=== PATIENT | female | born 1980 | race Caucasian/White ===

== ENCOUNTER 2016-09-30 21:15 | Emergency (ER) | payer MEDICAID ==
[2016-09-30 22:54] LABS: ABSOLUTE EOSINOPHILS # (AUTO) 0.1 10^3/uL (0.0-0.6); ABSOLUTE LYMPHOCYTES (AUTO) 2.3 10^3/uL (0.5-4.7); ABSOLUTE MONOCYTES (AUTO) 0.8 10^3/uL (0.1-1.4); BASOPHILS % (AUTO) 0.4 % (0-2); EOSINOPHILS % (AUTO) 0.8 % (0-6); HEMATOCRIT 41.2 % (36.0-47.0); HEMOGLOBIN 14.3 g/dL (12.0-15.5); HGB HCT DIFFERENCE 1.7; LYMPHOCYTES % (AUTO) 22.5 % (13-45); MEAN CORPUSCULAR HEMOGLOBIN 30.6 pg (27.0-33.4); MEAN CORPUSCULAR HGB CONC 34.7 g/dL (32.0-36.0); MEAN CORPUSCULAR VOLUME 88 fl (80-97); RED BLOOD COUNT 4.66 10^6/uL (3.72-5.28); RED CELL DISTRIBUTION WIDTH 12.5 % (11.5-14.0); SEGMENTED NEUTROPHILS % (AUTO) 68.3 % (42-78); WHITE BLOOD COUNT 10.3 10^3/uL (4.0-10.5)
[2016-09-30 23:00] LABS: APPEARANCE,URINE CLEAR; BILIRUBIN,URINE NEGATIVE (NEGATIVE); GLUCOSE, URINE NEGATIVE (NEGATIVE); KETONES,URINE NEGATIVE (NEGATIVE); LEUKOCYTE ESTERASE,URINE NEGATIVE (NEGATIVE); NITRITE,URINE NEGATIVE (NEGATIVE); PROTEIN,URINE NEGATIVE (NEGATIVE); URINE SPECIFIC GRAVITY 1.002; UROBILINOGEN,URINE NEGATIVE mg/dL (<2.0)
--- NOTE | 2016-09-30 23:37 | ER Document Report ---
ED General - General Chief Complaint: Vaginal Bleeding Stated Complaint: VAGINAL BLEEDING Time Seen by Provider: 09/30/16 23:28 Notes: Patient is a 35-year-old female presents for complaint of some vaginal spotting in . Patient says that tonight she passed what appeared to be either clot or some tissue in the toilet. She said some white-pink bleeding since then. No severe pain. No fevers. She has some dry heaving and diarrhea yesterday but that has since resolved. No other complaints this time. This is her third . Her first was normal. Her second ended in miscarriage. No complication with this thus far until tonight. She is followed by the health department. Next appointment is Sunday. She is taking vitamins. - Related Data Allergies/Adverse Reactions: No Known Allergies Allergy (Verified 09/30/16 22:10) Past Medical History - Social History Smoking Status: Unknown if Ever Smoked Frequency of alcohol use: None Drug Abuse: None Family History: Reviewed & Not Pertinent Renal/ Medical History: Denies: Hx Peritoneal Dialysis Past Surgical History: Reports: Hx Gynecologic Surgery - ovarian cyst - Immunizations Hx Diphtheria, Pertussis, Tetanus Vaccination: Yes Review of Systems - Review of Systems Notes: My Normal Review Basic REVIEW OF SYSTEMS: CONSTITUTIONAL : Denies fever, chills, or sweats. Denies recent illness. EENT: Denies eye, ear, throat, or mouth pain or symptoms. Denies nasal or sinus congestion. RESPIRATORY: Denies cough, cold, or chest congestion. Denies shortness of breath, difficulty breathing, or wheezing. GASTROINTESTINAL: No abdominal pain. Denies nausea, vomiting, or diarrhea. Denies constipation. GENITOURINARY: Denies difficulty urinating, painful urination, burning, frequency, or blood in urine. FEMALE GENITOURINARY: Some vaginal spotting. LMP: Currently . MUSCULOSKELETAL: Denies neck or back pain or joint pain or swelling. SKIN: Denies rash or skin lesions. NEUROLOGICAL: Denies altered mental status or loss of consciousness. Denies headache. Denies weakness or paralysis or loss of use of either side. Denies problems with gait or speech. Denies sensory or motor loss. ALL OTHER SYSTEMS REVIEWED AND NEGATIVE. Physical Exam - Vital signs Vitals: Temp Pulse Resp BP Pulse Ox 98.8 F 67 16 122/67 97 09/30/16 22:10 09/30/16 22:10 09/30/16 22:10 09/30/16 22:10 09/30/16 22:10 - Notes Notes: General Appearance: Well nourished, alert, cooperative, no acute distress, no obvious discomfort. Vitals: reviewed, See vital signs table. Head: no swelling or tenderness to the head Eyes: PERRL, EOMI, Conjuctiva clear Mouth: No decreasd moisture Lungs: No wheezing, No rales, No rhonci, No accessory muscle use, good air exchange bilaterally. Heart: Normal rate, Regular rythm, No murmur, no rub Abdomen: Normal BS, soft, No rigidity, No abdominal tenderness, No guarding, no rebound, no abdominal masses, no organomegaly Pelvic: Normal external genitalia. Patient has some small amount of brown material in vaginal vault that is consistent with old blood from her earlier bleeding. There is no active bleeding. Cervical os is closed. No pain on exam. Extremities: strength 5/5 in all extremities, good pulses in all extremities, no swelling or tenderness in the extremities, no edema. Skin: warm, dry, appropriate color, no rash Neuro: speech clear, oriented x 3, normal affect, responds appropriately to questions. Course - Vital Signs Vital signs: Temp Pulse Resp BP Pulse Ox 97.8 F 64 16 117/65 97 10/01/16 01:14 10/01/16 01:14 10/01/16 01:14 10/01/16 01:14 10/01/16 01:14 - Laboratory Result Diagrams: 09/30/16 22:30 Laboratory results interpreted by me: 09/30/16 09/30/16 22:30 23:00 Beta HCG, Quant 87003.00 H Urine Blood MODERATE H - Transfer of Care Notes: 10/01/16 05:56 Patient's says no. She has no active bleeding on pelvic exam. She looks well. I feel she is safe to be discharged home. I encouraged return to ER if she has recurrent bleeding, pain, or feels unwell. Patient agrees with plan and will be discharged home. Dictation of this chart was performed using voice recognition software; therefore, there may be some unintended grammatical errors. Discharge - Discharge Clinical Impression: Vaginal bleeding in Qualifiers: Trimester: second trimester Qualified Code(s): O46.92 - Antepartum hemorrhage, unspecified, second trimester Condition: Good Disposition: HOME, SELF-CARE Additional Instructions: Please return to the ER if you have recurrent bleeding, fevers, pain, or feel unwell. Please avoid sexual activity and heavy lifting for at least 1 week. Please follow up with your OB doctor on Sunday. Forms: Return to Work Referrals: POLINA AMARO MD [Primary Care Provider] - 10/02/16
[2016-10-01 01:14] VITALS: BP 117/65
== END 2016-10-01 01:15 | disposition home or self-care (01) ==
LOC: ER 21:15
DX: O46.92 Antepartum hemorrhage, unspecified, second trimester (principal)
CPT/HCPCS: 36415; 76805; 81001; 84702; 85025; 86900; 86901; 93976; 99284

== ENCOUNTER 2017-02-13 10:45 | Outpatient (CLI) | payer MEDICAID ==
--- NOTE | 2017-02-13 12:19 | Non Stress Test Report ---
Non Stress Test Datetime Report Generated by CPN: 02/13/2017 12:18 DEMOGRAPHIC EGA NST: 34.3 INDICATION Indication for Study: Ordered by Provider VITAL SIGNS Temperature - NST: 98.1 Pulse - NST: 85 RESP - NST: 16 NBPSYS NST: 119 NBPDIA NST: 72 MONITORING Monitor Explained: Monitor Explained; Test Explained; Patient Verbalized Understanding Time on Monitor: 02/13/2017 10:59 Time off Monitor: 02/13/2017 12:07 NST Duration: 68 NST INTERVENTIONS NST Interventions: PO Hydration; Other NST Interventions Other: juice Physician Notified NST: Dr. Sanford BABY A: [id number] BABY A Movement : Present Contraction Frequency : 0 FHR Baseline : 135 Accelerations : 15X15 Decelerations : None Variability : Moderate 6-25bpm NST Review: Meets Criteria for Reactive NST NST Review and Verified By : Ulisses Chavis RNC NST Results: Reactive NST REPORT Report Trigger: Send Report
== END 2017-02-13 12:12 | disposition home or self-care (01) ==
LOC: LC 10:45
PROVIDERS: ATTEND Obstetrics & Gynecology
PROC: 4A1HXCZ Monitoring of Products of Conception, Cardiac Rate, External Approach (ICD-10-PCS; principal; 2017-02-13)
DX: Z34.93 Encounter for supervision of normal pregnancy, unspecified, third trimester (principal)
CPT/HCPCS: 59025

== ENCOUNTER 2017-03-27 13:16 | Inpatient (IN) | payer MEDICAID ==
[2017-03-27] MEDS ORDERED: RINGERS SOLUTION,LACTATED 300 ML IV ONE (13:29)
[2017-03-27] MEDS ORDERED: RINGERS SOLUTION,LACTATED 1,000 ML IV PRN (13:29)
[2017-03-27 13:41] LABS: APPEARANCE,URINE CLOUDY; BILIRUBIN,URINE NEGATIVE (NEGATIVE); GLUCOSE, URINE NEGATIVE (NEGATIVE); KETONES,URINE NEGATIVE (NEGATIVE); LEUKOCYTE ESTERASE,URINE LARGE (NEGATIVE); NITRITE,URINE NEGATIVE (NEGATIVE); PROTEIN,URINE NEGATIVE (NEGATIVE); URINE SPECIFIC GRAVITY 1.014; UROBILINOGEN,URINE NEGATIVE mg/dL (<2.0)
[2017-03-27 13:57] LABS: URINE BARBITURATES SCREEN NEGATIVE; URINE METHADONE SCREEN NEGATIVE; URINE OPIATES LOW NEGATIVE; URINE PHENCYCLIDINE SCREEN NEGATIVE
[2017-03-27 14:25] LABS: ABSOLUTE LYMPHOCYTES (AUTO) 1.6 10^3/uL (0.5-4.7); ABSOLUTE MONOCYTES (AUTO) 0.8 10^3/uL (0.1-1.4); ABSOLUTE NEUT (AUTO) 5.6 10^3/uL (1.7-8.2); BASOPHILS % (AUTO) 0.4 % (0-2); EOSINOPHILS % (AUTO) 0.5 % (0-6); HEMATOCRIT 39.4 % (36.0-47.0); HEMOGLOBIN 13.7 g/dL (12.0-15.5); HGB HCT DIFFERENCE 1.7; LYMPHOCYTES % (AUTO) 19.4 % (13-45); MEAN CORPUSCULAR HEMOGLOBIN 30.4 pg (27.0-33.4); MEAN CORPUSCULAR HGB CONC 34.8 g/dL (32.0-36.0); MEAN CORPUSCULAR VOLUME 87 fl (80-97); MONOCYTES % (AUTO) 10.2 % (3-13); RED BLOOD COUNT 4.52 10^6/uL (3.72-5.28); SEGMENTED NEUTROPHILS % (AUTO) 69.5 % (42-78); WHITE BLOOD COUNT 8.1 10^3/uL (4.0-10.5)
[2017-03-27] MEDS ORDERED: OXYTOCIN/NORMAL SALINE 0 UNIT/0 ML RTUINJ ONE (14:49)
[2017-03-27] MEDS ORDERED: OXYTOCIN/NORMAL SALINE 20 UNIT/1,000 ML RTUINJ IV PRN ×2 (15:01→21:57)
[2017-03-27] MEDS ORDERED: FENTANYL CITRATE INJ/PF 100 MCG/2 ML AMPUL ONE (19:38)
[2017-03-27] MEDS ORDERED: PHENYLEPHRINE HCL INJ/PF 10 MG/1 ML SDV ONE (19:38)
[2017-03-27] MEDS ORDERED: EPHEDRINE SULFATE INJ 50 MG/1 ML AMPULE ONE (19:38)
[2017-03-27] MEDS ORDERED: FENTANYL/BUPIVACAINE/NS/PF 200 MCG/100 ML RTUINJ EPI ONE (19:39)
[2017-03-27] MEDS ORDERED: BUPIVACAINE HCL 0.25 % INJ/PF (2.5 MG/1 ML) 30 ML VIAL ONE (19:39)
--- NOTE | 2017-03-27 19:43 | L&D Progress Notes ---
PROGRESS NOTES Datetime Report Generated by CPN: 03/27/2017 19:43 PROGRESS NOTE Impression: Normal Progression of Labor Procedures: Sterile Vag Exam Plan: Continue Present Management Informed Consent Obtained: Vaginal Delivery; Risks, Benefits and Alternatives Discussed Informed Consent Obtained: Vaginal Delivery; Induction of Labor; Vacuum/Forceps Assist; Risks, Benefits and Alternatives Discussed Vital Signs : Reviewed; Within Normal Limits Comment: SROM at 1755. Pt desires epidural. cvx now with forebag in place. Will obtain patient and epidural and then AROM forebag and anticipate . Reassuring FWB. Pt verbalized understanding of plan of care. VAGINAL EXAM Dilatation: 6 Dilatation: 3 Effacement: 90 Effacement: 75 Station: -1 Station: -2 Contractions: q 1 to 2 Contractions: irreg MEMBRANES Membranes: Ruptured Membranes: Intact Amniotic Fluid Color: Clear FETUS A FHR - Baseline: 135 Monitoring: External US Variability: Moderate 6-25bpm Accelerations: 15X15 Decelerations: None FHR Category: Category I Estimated Weight (gm): 3583 Presentation: Vertex SIGNATURE SIGNATURE: [id number];[id number] SIGNATURE: [id number] Signature: with User ID: [email or web address]
[2017-03-27] MEDS ORDERED: MISOPROSTOL 0.2 MG TABLET ONE (19:45)
[2017-03-27] MEDS ORDERED: OXYTOCIN/NORMAL SALINE 20 UNIT/1,000 ML RTUINJ ONE (19:45)
[2017-03-27] MEDS ORDERED: LIDOCAINE 1% INJ-PF (10 MG/ML) 30 ML SDV ONE (19:45)
[2017-03-27] MEDS ORDERED: PROMETHAZINE HCL 25 MG TABLET PO PRN (21:57)
[2017-03-27] MEDS ORDERED: NA PHOS,M-B/NA PHOS,DI-BA (ADULT) 133 ML ENEMA PR PRN (21:57)
[2017-03-27] MEDS ORDERED: GLYCERIN/WITCH HAZEL LEAF 1 EACH MED..PAD TP PRN (21:57)
[2017-03-27] MEDS ORDERED: DIPH/PERTUSS(ACELL)/TETANUS VAC/PF 0.5 ML SYR (>=10YO) IM PRN (21:57)
[2017-03-27] MEDS ORDERED: DIBUCAINE 1% OINTMENT 28 GM TP PRN (21:57)
[2017-03-27] MEDS ORDERED: DIPHENHYDRAMINE HCL 25 MG CAPSULE PO PRN (21:57)
[2017-03-27] MEDS ORDERED: ZOLPIDEM TARTRATE 5 MG TABLET PO PRN (21:57)
[2017-03-27] MEDS ORDERED: ACETAMINOPHEN 650 MG SUPP.RECT PR PRN (21:57)
[2017-03-27] MEDS ORDERED: BENZOCAINE/MENTHOL AEROSOL SPRAY 56 ML TOP PRN (21:57)
[2017-03-27] MEDS ORDERED: PSEUDOEPHEDRINE HCL 30 MG TABLET PO PRN (21:57)
[2017-03-27] MEDS ORDERED: ACETAMINOPHEN WITH CODEINE #3 TABLET PO PRN ×2 (21:57)
[2017-03-27] MEDS ORDERED: MAGNESIUM HYDROXIDE SUSP 30 ML UDCUP PO PRN (21:57)
[2017-03-27] MEDS ORDERED: MEASLES,MUMPS&RUBELLA VACC/PF 0.5 ML VIAL SUBCUT PRN (21:57)
[2017-03-27] MEDS ORDERED: PROMETHAZINE HCL INJ 25 MG/1 ML VIAL IV PRN (21:57)
[2017-03-27] MEDS ORDERED: PROMETHAZINE HCL 25 MG SUPP.RECT PR PRN (21:57)
--- NOTE | 2017-03-27 23:12 | Delivery Summary ---
Del Sum A-C Datetime Report Generated by CPN: 03/27/2017 23:12 DELIVERY PERSONNEL DELIVERY PERSONNEL: [id number] Delivery Doctor:: Olamide Wheat MD Labor and Delivery Nurse:: Ree Payton RNjanitor caretaker Nurse:: Caryn Marquez RN Telecom Specialist/SPEECH PATHOLOGY SUPERVISOR: Marzena Crowleyivone SPEECH PATHOLOGY SUPERVISOR MATERNAL INFORMATION Delivery Anesthesia: Epidural Medications After Delivery: Pitocin Bolus-Please Comment Estimated Blood Loss (ml): 300 Maternal Complications: None Provider Comments: VFI delivered in direct OA presentation. No nuchal cord. Shoulders and body delivered without difficulty. Cord doubly clamped and to maternal abdomen for NRP. Placenta delivered intact spontaneously. FF at U. Good hemostasis after repair of lacerations. Mother and baby stable upon provider leaving the room. Apgars 8/9. Weight pending at delivery. LABOR SUMMARY EDC: 03/24/2017 00:00 No. Babies in Womb: 1 Attempted: No Labor Anesthesia: Epidural LABOR INFORMATION Reason for Induction: Other Reason for Induction- Other: Elective Onset of Labor: 03/27/2017 15:00 Complete Dilatation: 03/27/2017 20:46 Other Ripening Agents: pitocin Oxytocin: Induction Group B Beta Strep: Negative Steroids Given: None Reason Steroids Not Administered: Not Applicable MEMBRANES Membranes Rupture Method: Artificial Rupture of Membranes: 03/27/2017 17:55 Length of Rupture (hr): 3.45 Amniotic Fluid Color: Clear Amniotic Fluid Amount: Scant STAGES OF LABOR Stage 1 hr: 5 Stage 1 min: 46 Stage 2 hr: 0 Stage 2 min: 36 Stage 3 hr: 0 Stage 3 min: 4 Total Time in Labor hr: 6 Total Time in Labor min: 26 VAGINAL DELIVERY Episiotomy: None Laceration #1: Perineal Laceration Extension #1: Second Degree Laceration #2: Periurethral Laceration Extension #2: N/A Laceration Repair: Yes Laceration Repair Note: 2nd degree ML perineal laceration repaired in usual fashion. periurethral laceration repaired with good hemostasis. Sponge Count Correct: Yes Sharps Count Correct: Yes CSECTION DELIVERY Primary Indication: N/A Secondary Indication: N/A CSection Incidence: N/A Labor: N/A Elective: N/A CSection Incision: N/A BABY A INFORMATION Delivery Date/Time: 03/27/2017 21:22 Method of Delivery: Vaginal Born in Route : No : N/A Forceps: N/A Vacuum Extraction: N/A Shoulder Dystocia : No PRESENTATION/POSITION BABY A Presentation: Cephalic Cephalic Presentation: Vertex Vertex Position: direct OA Breech Presentation: N/A PLACENTA INFORMATION BABY A Placenta Delivery Time : 03/27/2017 21:26 Placenta Method of Delivery: Spontaneous Placenta Status: Delivered SCORES BABY A Heart Rate 1 min: >100 bpm Resp Effort 1 min: Good Cry Reflex Irritability 1 min: Cough or Sneeze or Pulls Away Muscle Tone 1 min: Active Motion Color 1 min: Blue/Pale Resuscitation Effort 1 min: Tactile Stimulation SCORE 1 MIN: 8 Heart Rate 5 min: >100 bpm Resp Effort 5 min: Good Cry Reflex Irritability 5 min: Cough or Sneeze or Pulls Away Muscle Tone 5 min: Active Motion Color 5 min: Body [place], Extremities Blue Resuscitation Effort 5 min: Tactile Stimulation SCORE 5 MIN: 9 INFORMATION BABY A Gestational Age at Delivery: 40.3 Gestational Status: Full Term- 39- 40.6 Weeks Infant Outcome : Liveborn Condition : Stable Sex: Female IDENTIFICATION BABY A Verification Date/Time: 03/27/2017 21:47 ID Band Number: [id number] Mother's Name Verified: Yes Infant RN Verifying : K Alma RN/ J Field RN WEIGHT/LENGTH BABY A Birthweight (gm): 3860 Infant Weight (lb): 8 Infant Weight (oz): 8 Infant Length (in): 21.00 Length (cm): 53.34 CORD INFORMATION BABY A No. Cord Vessels: 3 Nuchal Cord : N/A Cord Blood Taken: Yes-For Eval (Mom's Blood Type - or O+) Infant Suction: Mouth; Nose ASSESSMENT BABY A Complications: None Physical Findings at Delivery: Within Normal Limits Respirations: Appears Normal Skin to Skin: Yes Skin to Skin Time (min): 60 Kettle Hand/ALS Called : No Care By: K Alma RN Transferred To: Remains with Mother BABY B INFORMATION : N/A SIGNATURES Signature: with User ID: [email or web address]
--- NOTE | 2017-03-28 | Admission Physical ---
Datetime Report Generated by CPN: 03/28/2017 00:00 CURRENT ADMISSION Hx Assessment: The History has been Reviewed and is Current Chief Complaint: Scheduled Induction of Labor Indication for Induction: Postterm; Other Indication for Induction: Term, Intrauterine ; No Active Labor; Intact Membranes; Induction of Labor Indication for Induction- Other: AMA Admit Plan: Admit to Unit; Initiate Labor Induction Protocol ALLERGIES Medication Allergies: No Medication Allergies: No Known Allergies (03/27/2017) Medication Allergies: No Known Allergies (02/13/2017) Medication Allergies: No Known Allergies (09/30/2016) Latex: No Latex Allergies OBSTETRICAL HISTORY EDC: 03/24/2017 00:00 : 3 Para: 1 Term: 1 : 0 SAB: 1 IAB: 0 Ectopic: 0 Livin Cesareans: 0 VBACs: 1 Multiple Births: 0 Gestational Diabetes: No Rh Sensitization: No Incompetent Cervix: No ANDREA: No Infertility: No ART Treatment: No Uterine Anomaly: No IUGR: No Hx Previous C/S: No Macrosomia: No Hx Loss/Stillborn: No PIH: No Hx : No Placenta Previa/Abruption: No Depression/PP Depression: No PTL/PROM: No Post Hemorrhage: No Obstetrical History Comments: G1: 2001, , boy, no complications G2: current SEE RECORDS Alcohol: No Marijuana : No Cocaine: No Other Illicit Drugs: No Cigarettes: Never Smoker. 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 Heart Disease: No Hosp/Surgery: Yes Autoimmune Disorder: No Anesthetic Complications: No Kidney Disease: No Abnormal Pap Smear: No Neuro/Epilepsy: No Psychiatric Disorders: No Other Medical Diseases: No Hepatitis/Liver Disease: No Significant Family History: No Varicosities/Phlebitis: No Trauma/Violence : No Thyroid Dysfunction: No Medical History Comments: cyst removal on ovary INFECTIOUS HISTORY Gonorrhea: No Genital Herpes: No Chlamydia: Yes Tuberculosis: No Syphilis: No Hepatitis: No HIV/AIDS Exposure: No Rash or Viral Illness: No HPV: Yes Infectious History Comments: Chlamydia: 2000, negative since abnormal pap: at least 10 years ago, normal currently PHYSICAL EXAM General: Normal HEENT: Normal Neurologic: Normal Thyroid: Normal Heart: Normal Lungs: Normal Breast: Deferred Back: Normal Abdomen: Normal Genitourinary Exam: Normal Extremities: Normal DTRs: Normal Pelvic Type: Adequate Vital Signs: Reviewed VAGINAL EXAM Dilatation: 6 Dilatation: 3 Effacement: 90 Effacement: 75 Station: -1 Station: -2 Contraction Comments: q 1 to 2 Contraction Comments: irreg MEMBRANES Membranes: Ruptured Membranes: Intact Amniotic Fluid Color: Clear FETUS A EGA: 40.3 Monitoring: External US FHR- Baseline: 155 Variability: Moderate 6-25bpm Accelerations: 15X15 Decelerations: None FHR Category: Category I FHR Comments: CAT I FHR tracing. Estimated Weight (gm): 3583 Presentation: Vertex Admit Comment: 36yo at 40+3ega presents for scheduled elective IOL. AMA with normal female chromosomes for informaseq. Pelvis proven to 7#10oz. EFW 03/19 was 7#14oz. GBS negative . Pt was advised regarding risks of induction and consents signed. Reassuring FWB. Antcipate . Will begin pitocin. o/w uncomplicated. 1 hr GTT 127 at 25wks. PLANS FOR LABOR AND DELIVERY Labor and Delivery: None Pain Management: Epidural Feeding Preference: Breast Benefit of Breast Feed Discussed: Yes Circumcision: N/A INFORMED CONSENT Informed Consent Obtained: Vaginal Delivery; Risks, Benefits and Alternatives Discussed Informed Consent Obtained: Vaginal Delivery; Induction of Labor; Vacuum/Forceps Assist; Risks, Benefits and Alternatives Discussed Signature: with User ID: [email or web address]
[2017-03-28] MEDS: FAMOTIDINE 20 MG TABLET PO SCH ×3 (01:08→21:07)
[2017-03-28] MEDS: IBUPROFEN 800 MG TABLET PO SCH ×4 (01:08→21:05)
[2017-03-28 08:01] LABS: HEMATOCRIT 36.1 % (36.0-47.0); HEMOGLOBIN 12.5 g/dL (12.0-15.5); HGB HCT DIFFERENCE 1.4; MEAN CORPUSCULAR HEMOGLOBIN 30.3 pg (27.0-33.4); MEAN CORPUSCULAR HGB CONC 34.5 g/dL (32.0-36.0); MEAN CORPUSCULAR VOLUME 88 fl (80-97); RED BLOOD COUNT 4.11 10^6/uL (3.72-5.28); RED CELL DISTRIBUTION WIDTH 14.1 % (11.5-14.0)
[2017-03-28] MEDS: PRENATAL VITAMIN W-O CA NO5/FE FUMARATE/FA CAPSULE PO SCH (09:45)
[2017-03-28] MEDS: FERROUS SULFATE 325 MG TABLET PO SCH ×2 (09:45→18:19)
[2017-03-28] MEDS: DOCUSATE SODIUM 100 MG CAPSULE PO SCH ×2 (09:45→18:19)
[2017-03-28] MEDS: SENNOSIDES/DOCUSATE 8.6-50 MG 1 EACH TABLET PO SCH (09:46)
--- NOTE | 2017-03-28 11:13 | PDOC PROGRESS REPORT ---
Subjective-OB Subjective: Post Delivery Day: 36 year old. Denies any needs at this time Doing well, no c/o, hsb at BS, breastfeding, voiding, ambulating, no c/o Physical Exam (OB) Vital Signs: Temp Pulse Resp BP Pulse Ox 97.9 F 71 15 113/75 98 03/28/17 07:30 03/28/17 07:30 03/28/17 07:30 03/28/17 07:30 03/28/17 07:30 Intake & Output 03/27/17 03/28/17 03/29/17 06:59 06:59 06:59 Intake Total 400 Balance 400 Weight 112.05 kg - Lochia Lochia Amount: Scant < 10 ml Lochia Color: Rubra/Red - Abdomen Description: Tender, Soft Hernia Present: No Fundal Description: Firm, Midline Fundal Height: u/u - u/2 Objective-Diagnostic Laboratory: 03/28/17 07:36 03/27/17 03/27/17 03/27/17 13:25 14:13 14:13 WBC 8.1 RBC 4.52 Hgb 13.7 Hct 39.4 MCV 87 MCH 30.4 MCHC 34.8 RDW 14.0 Plt Count 208 Seg Neutrophils % 69.5 Lymphocytes % 19.4 Monocytes % 10.2 Eosinophils % 0.5 Basophils % 0.4 Absolute Neutrophils 5.6 Absolute Lymphocytes 1.6 Absolute Monocytes 0.8 Absolute Eosinophils 0.0 Absolute Basophils 0.0 Urine Color YELLOW Urine Appearance CLOUDY Urine pH 7.0 Ur Specific [place] 1.014 Urine Protein NEGATIVE Urine Glucose (UA) NEGATIVE Urine Ketones NEGATIVE Urine Blood MODERATE H Urine Nitrite NEGATIVE Ur Leukocyte Esterase LARGE H Blood Type O POSITIVE Antibody Screen NEGATIVE 03/28/17 07:36 WBC 14.0 H RBC 4.11 Hgb 12.5 Hct 36.1 MCV 88 MCH 30.3 MCHC 34.5 RDW 14.1 H Plt Count 216 Seg Neutrophils % Lymphocytes % Monocytes % Eosinophils % Basophils % Absolute Neutrophils Absolute Lymphocytes Absolute Monocytes Absolute Eosinophils Absolute Basophils Urine Color Urine Appearance Urine pH Ur Specific [place] Urine Protein Urine Glucose (UA) Urine Ketones Urine Blood Urine Nitrite Ur Leukocyte Esterase Blood Type Antibody Screen Assessment and Plan(PN) - Assessment and Plan (1) Normal vaginal delivery Is this a current diagnosis for this admission?: Yes - Time Spent with Patient Time with patient: Less than 15 minutes Medications reviewed and adjusted accordingly: Yes - Disposition Anticipated Discharge: Home Within: within 24 hours
[2017-03-29] MEDS: IBUPROFEN 800 MG TABLET PO SCH ×2 (05:54→14:00)
[2017-03-29 09:18] VITALS: BP 113/75
[2017-03-29] MEDS: PRENATAL VITAMIN W-O CA NO5/FE FUMARATE/FA CAPSULE PO SCH (09:47)
[2017-03-29] MEDS: SENNOSIDES/DOCUSATE 8.6-50 MG 1 EACH TABLET PO SCH (09:47)
[2017-03-29] MEDS: DOCUSATE SODIUM 100 MG CAPSULE PO SCH ×2 (09:47→18:02)
[2017-03-29] MEDS: FERROUS SULFATE 325 MG TABLET PO SCH ×2 (09:47→18:02)
--- NOTE | 2017-03-29 10:40 | PDOC DISCHARGE SUMMARY ---
Final Diagnosis Discharge Date: 03/29/17 Discharge Data - Discharge Medication Home Medications: Calcium Carbonate [Calcium] 500 mg PO BID 02/13/17 Diphenhydramine HCl [Benadryl] 25 mg PO PRN PRN 02/13/17 Fexofenadine HCl [Sujata] 180 mg PO DAILY 02/13/17 Prenat 115/Iron Fum/Folic/Dss [Pnv-Ferrous [id number]] 1 each PO DAILYP PRN 02/13/17 Reason(s) for Admission: Induction of Labor Procedures: NST Intrapartum Procedure(s): Spontaneous Vaginal Delivery Complication(s): Laceration-Perineal, Laceration-Periurethral Laceration-Degree: 1st - Diagnosis Test Laboratory: Temp Pulse Resp BP Pulse Ox 98.2 F 64 16 113/75 99 03/29/17 09:15 03/29/17 09:15 03/29/17 09:15 03/29/17 09:15 03/29/17 09:15 03/27/17 03/27/17 03/28/17 13:25 14:13 07:36 RBC 4.52 4.11 Hgb 13.7 12.5 Hct 39.4 36.1 Urine Opiates Screen NEGATIVE - Discharge information/Instructions Discharge Activity: Balance Activity w/Rest, Pelvic Rest Discharge Diet: Regular Disposition: HOME, SELF-CARE Follow up with: [facility] in: 4, Weeks
[2017-03-29] MEDS: FAMOTIDINE 20 MG TABLET PO SCH (12:42)
== END 2017-03-29 21:30 | disposition home or self-care (01) | DRG 775 ==
LOC: LR 13:16 → 2S 23:59
PROVIDERS: ADMIT Student in an Organized Health Care Education/Training Program; ATTEND Student in an Organized Health Care Education/Training Program
PROC: 10E0XZZ Delivery of Products of Conception, External Approach (ICD-10-PCS; principal; 2017-03-27)
PROC: 0HQ9XZZ Repair Perineum Skin, External Approach (ICD-10-PCS; 2017-03-27)
PROC: 0UQMXZZ Repair Vulva, External Approach (ICD-10-PCS; 2017-03-27)
PROC: 3E033VJ Introduction of Other Hormone into Peripheral Vein, Percutaneous Approach (ICD-10-PCS; 2017-03-27)
PROC: 10907ZC Drainage of Amniotic Fluid, Therapeutic from Products of Conception, Via Natural or Artificial Opening (ICD-10-PCS; 2017-03-27)
PROC: 4A1HXCZ Monitoring of Products of Conception, Cardiac Rate, External Approach (ICD-10-PCS; 2017-03-27)
DX: O48.0 Post-term pregnancy (principal); O70.0 First degree perineal laceration during delivery; O71.82 Other specified trauma to perineum and vulva; Z28.21 Immunization not carried out because of patient refusal; Z3A.40 40 weeks gestation of pregnancy; Z37.0 Single live birth
CPT/HCPCS: 36415; 80307; 81005; 85025; 85027; 86592; 86850; 86900; 86901; 94760; J2370; J2590; J3010; J3490

== ENCOUNTER 2018-09-06 19:20 | Emergency (ER) | payer MEDICAID ==
--- NOTE | 2018-09-06 19:47 | ER Document Report ---
ED Medical Screen (RME) - General Chief Complaint: OB Problem (<20wks) Stated Complaint: ABDOMINAL CRAMPING Time Seen by Provider: 09/06/18 19:44 Primary Care Provider: POLINA AMARO MD [Primary Care Provider] - Follow up as needed Mode of Arrival: Ambulatory Information source: Patient Notes: 37-year-old female presented to ED for complaint of pelvic cramping and vaginal spotting. She is first trimester. She states they had sex about 4 or 5 hours ago. She states she put a tampon in because that is where she does have to sex and then about 6:00 they noticed some blood in the commode and in her underwear so she took the tampon out. She states she has some mild cramping. She is O positive blood type. An ultrasound at [facility]. I have greeted and performed a rapid initial assessment of this patient. A comprehensive ED assessment and evaluation of the patient, analysis of test results and completion of medical decision making process will be conducted by an additional ED providers. TRAVEL OUTSIDE OF THE [place] IN LAST 30 DAYS: No - Related Data Allergies/Adverse Reactions: No Known Allergies Allergy (Verified 03/27/17 13:26) Past Medical History Renal/ Medical History: Denies: Hx Peritoneal Dialysis Past Surgical History: Reports: Hx Gynecologic Surgery - ovarian cyst - Immunizations Hx Diphtheria, Pertussis, Tetanus Vaccination: Yes History of Influenza Vaccine for 02/2017 - 07/2017 Season: No Physical Exam - Vital signs Vitals: Temp Pulse Resp BP Pulse Ox 97.8 F 66 20 127/82 H 97 09/06/18 19:36 09/06/18 19:36 09/06/18 19:36 09/06/18 19:36 09/06/18 19:36 Course - Vital Signs Vital signs: Temp Pulse Resp BP Pulse Ox 97.8 F 66 20 127/82 H 97 09/06/18 19:36 09/06/18 19:36 09/06/18 19:36 09/06/18 19:36 09/06/18 19:36 Doctor's Discharge - Discharge Referrals: POLINA AMARO MD [Primary Care Provider] - Follow up as needed
[2018-09-06 20:14] LABS: ABSOLUTE BASOPHILS # (AUTO) 0.1 10^3/uL (0.0-0.2); ABSOLUTE EOSINOPHILS # (AUTO) 0.1 10^3/uL (0.0-0.6); ABSOLUTE LYMPHOCYTES (AUTO) 2.6 10^3/uL (0.5-4.7); ABSOLUTE MONOCYTES (AUTO) 0.7 10^3/uL (0.1-1.4); ABSOLUTE NEUT (AUTO) 5.4 10^3/uL (1.7-8.2); BASOPHILS % (AUTO) 0.7 % (0-2); EOSINOPHILS % (AUTO) 1.4 % (0-6); HEMATOCRIT 44.5 % (36.0-47.0); HEMOGLOBIN 15.4 g/dL (12.0-15.5); LYMPHOCYTES % (AUTO) 29.1 % (13-45); MEAN CORPUSCULAR HEMOGLOBIN 31.3 pg (27.0-33.4); MEAN CORPUSCULAR HGB CONC 34.7 g/dL (32.0-36.0); MEAN CORPUSCULAR VOLUME 90 fl (80-97); MONOCYTES % (AUTO) 7.7 % (3-13); PLATELET COUNT 244 10^3/uL (150-450); RED BLOOD COUNT 4.94 10^6/uL (3.72-5.28); SEGMENTED NEUTROPHILS % (AUTO) 61.1 % (42-78); TOTAL CELLS COUNTED % (AUTO) 100 %; WHITE BLOOD COUNT 8.8 10^3/uL (4.0-10.5)
[2018-09-06 20:30] LABS: ALANINE AMINOTRANSFERASE 22 U/L (9-52); ALBUMIN 4.2 g/dL (3.5-5.0); ALKALINE PHOSPHATASE 80 U/L (38-126); ANION GAP 11 (5-19); ASPARTATE AMINO TRANSFERASE 17 U/L (14-36); BILIRUBIN,DIRECT 0.3 mg/dL (0.0-0.4); BILIRUBIN,TOTAL 0.3 mg/dL (0.2-1.3); BLOOD UREA NITROGEN 14 mg/dL (7-20); CALCIUM 9.5 mg/dL (8.4-10.2); CARBON DIOXIDE 23 mmol/L (22-30); CHLORIDE 104 mmol/L (98-107); GLUCOSE 85 mg/dL (75-110); POTASSIUM 4.1 mmol/L (3.6-5.0); SODIUM 137.9 mmol/L (137-145); TOTAL PROTEIN 7.5 g/dL (6.3-8.2)
[2018-09-06 20:52] LABS: APPEARANCE,URINE CLEAR; BILIRUBIN,URINE NEGATIVE (NEGATIVE); COLOR,URINE COLORLESS; GLUCOSE, URINE NEGATIVE (NEGATIVE); KETONES,URINE NEGATIVE (NEGATIVE); LEUKOCYTE ESTERASE,URINE NEGATIVE (NEGATIVE); NITRITE,URINE NEGATIVE (NEGATIVE); PROTEIN,URINE NEGATIVE (NEGATIVE); URINE SPECIFIC GRAVITY 1.003; UROBILINOGEN,URINE NEGATIVE mg/dL (<2.0)
--- NOTE | 2018-09-06 22:26 | ER Document Report ---
ED General - General Chief Complaint: OB Problem (<20wks) Stated Complaint: ABDOMINAL CRAMPING Time Seen by Provider: 09/06/18 19:44 Primary Care Provider: POLINA AMARO MD [Primary Care Provider] - Follow up as needed Mode of Arrival: Ambulatory Notes: Patient is a pleasant 37-year-old female who is a currently 11 weeks with 2 previous miscarriages. She had a normal ultrasound showing an IUP approximately 3 weeks ago. She presents with bleeding and some passing of clots today. Bleeding is continued. Some crampy lower abdominal pain. No fevers. No dysuria. No vomiting. No other complaints at this time. She is currently taking vitamins. She has no other chronic medical problems. TRAVEL OUTSIDE OF THE [place] IN LAST 30 DAYS: No - Related Data Allergies/Adverse Reactions: No Known Allergies Allergy (Verified 03/27/17 13:26) Past Medical History - General Information source: Patient - Social History Smoking Status: Never Smoker Chew tobacco use (# tins/day): No Frequency of alcohol use: None Drug Abuse: None Family History: Reviewed & Not Pertinent Patient has suicidal ideation: No Patient has homicidal ideation: No Renal/ Medical History: Denies: Hx Peritoneal Dialysis Past Surgical History: Reports: Hx Gynecologic Surgery - ovarian cyst - Immunizations Hx Diphtheria, Pertussis, Tetanus Vaccination: Yes Review of Systems - Review of Systems Notes: My Normal Review Basic REVIEW OF SYSTEMS: CONSTITUTIONAL : Denies fever, chills, or sweats. Denies recent illness. RESPIRATORY: Denies cough, cold, or chest congestion. Denies shortness of breath, difficulty breathing, or wheezing. GASTROINTESTINAL: Denies abdominal pain. Denies nausea, vomiting, or diarrhea. GENITOURINARY: Denies difficulty urinating, painful urination, burning, frequency, or blood in urine. FEMALE GENITOURINARY: Some bleeding. 11 weeks . MUSCULOSKELETAL: Denies neck or back pain or joint pain or swelling. SKIN: Denies rash or skin lesions. NEUROLOGICAL: Denies altered mental status or loss of consciousness. Denies headache. Denies weakness or paralysis or loss of use of either side. Denies problems with gait or speech. Denies sensory or motor loss. ALL OTHER SYSTEMS REVIEWED AND NEGATIVE. Physical Exam - Vital signs Vitals: Temp Pulse Resp BP Pulse Ox 97.8 F 66 20 127/82 H 97 09/06/18 19:36 09/06/18 19:36 09/06/18 19:36 09/06/18 19:36 09/06/18 19:36 - Notes Notes: General Appearance: Well nourished, alert, cooperative, no acute distress, no obvious discomfort. Well-appearing. Vitals: reviewed, See vital signs table. Head: no swelling or tenderness to the head Eyes: PERRL, EOMI, Conjuctiva clear Mouth: No decreasd moisture Lungs: No wheezing, No rales, No rhonci, No accessory muscle use, good air exchange bilaterally. Heart: Normal rate, Regular rythm, No murmur, no rub Abdomen: Normal BS, soft, No rigidity, No abdominal tenderness, No guarding, no rebound, no abdominal masses, no organomegaly Extremities: good pulses in all extremities, no edema. Skin: warm, dry, appropriate color Neuro: speech clear, oriented x 3, normal affect, responds appropriately to questions. Course - Re-evaluation Re-evalutation: 09/07/18 00:27 Patient is 11 weeks by date but her hCG level is only 2000. Her ultrasound shows a 8-week fetus with no heartbeat. This is very suggestive of miscarriage or demise. I did explain this to the patient and her and they are understanding of this. Currently she is stable and looks well. I informed her that she will probably have some increasing bleeding over the weekend. She said she will [facility] Sunday to make a close follow-up appointment. I informed her that part importance of following up to make sure if she is indeed having a miscarriage that does go to completion. I informed her that she should return to ER anytime if she has very heavy bleeding that is making her feel lightheaded or dizzy, or if she feels that the bleeding is too extensive, or if she has severe pain, or if she has any further concerns. Patient agrees with plan and she will be discharged home. Dictation of this chart was performed using voice recognition software; theref ore, there may be some unintended grammatical errors. - Vital Signs Vital signs: Temp Pulse Resp BP Pulse Ox 97.8 F 66 20 127/82 H 97 09/06/18 19:36 09/06/18 19:36 09/06/18 19:36 09/06/18 19:36 09/06/18 19:36 - Laboratory Result Diagrams: 09/06/18 20:04 09/06/18 20:04 Laboratory results interpreted by me: 09/06/18 09/06/18 20:04 20:04 Beta HCG, Quant 2015.00 H Urine Blood LARGE H Discharge - Discharge Clinical Impression: Vaginal bleeding during Condition: Good Disposition: HOME, SELF-CARE Additional Instructions: Based on your hormone level of 2000 and your ultrasound which shows your fetus does not have a heartbeat, I suspect that most likely you are having a miscarriage. I suspect you will have continued bleeding over the next several days. You may have some cramping pain. Please continue take your vitamins. Please call [facility] on Sunday to make a close follow-up appointment. It is important he follow-up with them so they can make sure that if you are having miscarriage at this miscarriage does go to completion and that your hormone level goes to 0. Have a low threshold to return to the ER if you have fevers, intractable pain, heavy bleeding, lightheadedness or dizziness, difficulty breathing, or if you feel unwell in any way. Forms: Return to Work Referrals: POLINA AMARO MD [Primary Care Provider] - 09/09/18
--- NOTE | 2018-09-07 00:16 | RADIOLOGY REPORT (SQ) ---
EXAM DESCRIPTION: US TRANSVAGINAL COMPLETED DATE/TME: 09/06/2018 22:03 CLINICAL HISTORY: 37 years Female, bleeding in LMP to 08/07/2018 COMPARISON: None. TECHNIQUE: Complete first trimester obstetrical ultrasound with transvaginal imaging. FINDINGS: Uterus: The uterus measures 12.3 x 7.4 x 8.8 cm. No myometrial abnormalities. Cervical length of 3.5 cm. Gestational sac: Gestational sac with normal configuration. pole: pole identified with a crown-rump length of 2.11 cm heart motion: No heart motion identified. Yolk sac: Normal-appearing yolk sac. Placenta: Not well visualized due to early gestational age. Right ovary: The right ovary measures 3.2 x 2.5 x 2.3 cm. Left ovary: Not visualized due to overlying structures. Adnexa: No large adnexal masses. Free fluid: No free fluid. Duplex imaging: Color spectral Doppler imaging of the left ovary demonstrates blood flow. IMPRESSION: 1. Single intrauterine with estimated gestational age of 8 weeks, 5 days. No cardiac activity identified. Findings concerning for demise. Close continued clinical, laboratory, and sonographic follow-up recommended. This report was called by the mechanical technologist at 2331 hours.
[2018-09-07 00:55] VITALS: BP 119/68
== END 2018-09-07 00:54 | disposition home or self-care (01) ==
LOC: ER 19:20
DX: O20.9 Hemorrhage in early pregnancy, unspecified (principal); O26.891 Other specified pregnancy related conditions, first trimester; R10.30 Lower abdominal pain, unspecified; Z3A.11 11 weeks gestation of pregnancy; Z79.899 Other long term (current) drug therapy; Z87.59 Personal history of other complications of pregnancy, childbirth and the puerperium
CPT/HCPCS: 36415; 76817; 80053; 81001; 84702; 85025; 93976; 99284

== ENCOUNTER 2019-03-28 11:53 | Emergency (ER) | payer OTHER, MEDICAID ==
--- NOTE | 2019-03-28 12:18 | ER Document Report ---
ED Medical Screen (RME) - General Chief Complaint: Vaginal Bleeding Stated Complaint: VAGINAL BLEEDING Time Seen by Provider: 03/28/19 12:14 Primary Care Provider: POLINA AMARO MD [Primary Care Provider] - Follow up as needed Mode of Arrival: Ambulatory Information source: Patient Notes: 38-year-old female presents to ED for complaint of pelvic pain vaginal discharge and then bright red blood right before she came over about 1115. She is 11 weeks 5 para 2. She states her blood type is O+. She states she has right lower quadrant/pelvic/right thigh pain she states she has had a ovarian cyst removed from 1 of her ovaries she does not remember which one. No smoke no drink no drugs. Patient is alert and oriented respirations regular nonlabored. I have greeted and performed a rapid initial assessment of this patient. A comprehensive ED assessment and evaluation of the patient, analysis of test results and completion of medical decision making process will be conducted by an additional ED providers. TRAVEL OUTSIDE OF THE [place] IN LAST 30 DAYS: No - Related Data Allergies/Adverse Reactions: No Known Allergies Allergy (Verified 03/28/19 12:13) Past Medical History Renal/ Medical History: Denies: Hx Peritoneal Dialysis Past Surgical History: Reports: Hx Gynecologic Surgery - ovarian cyst - Immunizations Hx Diphtheria, Pertussis, Tetanus Vaccination: Yes Physical Exam - Vital signs Vitals: Temp Pulse Resp BP Pulse Ox 97.9 F 71 18 122/68 98 03/28/19 11:59 03/28/19 11:59 03/28/19 11:59 03/28/19 11:59 03/28/19 11:59 Course - Vital Signs Vital signs: Temp Pulse Resp BP Pulse Ox 97.9 F 71 18 122/68 98 03/28/19 11:59 03/28/19 11:59 03/28/19 11:59 03/28/19 11:59 03/28/19 11:59 Doctor's Discharge - Discharge Referrals: POLINA AMARO MD [Primary Care Provider] - Follow up as needed
--- NOTE | 2019-03-28 12:59 | RADIOLOGY REPORT (SQ) ---
EXAM DESCRIPTION: U/S [id number] TRNABD 1GES W/ODOP COMPLETED DATE/TIME: 03/28/2019 12:47 pm REASON FOR STUDY: Vaginal bleeding 11 weeks COMPARISON: None. TECHNIQUE: Transabdominal static and realtime grayscale images acquired of the pelvis. Additional se lected spectral and color Doppler images recorded. All images stored on PACs. bHCG: Not available. CLINICAL DATES: 11 weeks 1 day. LIMITATIONS: None. FINDINGS: FETUS: Single intrauterine . No heart activity. ULTRASOUND EGA: 8 weeks 2 days. ULTRASOUND KEYSHAWN: 11/05/2019 EFW: Not applicable less than 20 weeks. CRL: 1.80 cm FHR: Absent. SURVEY: Too early to assess. AMNIOTIC FLUID: Adequate amount. PLACENTA: Not yet developed due to early gestation. SUBCHORIONIC BLEED: No. SIZE OF BLEED: Not applicable. UTERUS: No masses. No anomalies. CERVICAL LENGTH: 2.3 cm. Closed. RIGHT ADNEXA: Normal ovary with normal vascular flow. No adnexal free fluid. No adnexal masses. LEFT ADNEXA: Normal ovary with normal vascular flow. No adnexal free fluid. No adnexal masses. FREE FLUID: None. OTHER: No other significant finding. IMPRESSION: Intrauterine gestational although no heart activity. The gestational sac is low i n position. demise is suspected. Trimester of : First trimester - 0 to 13 weeks. TECHNICAL DOCUMENTATION: JOB ID: [id number] [employer]- All Rights Reserved rev Reading location - IP/workstation name: [email or web address]
[2019-03-28 13:02] LABS: ABSOLUTE EOSINOPHILS # (AUTO) 0.1 10^3/uL (0.0-0.6); ABSOLUTE LYMPHOCYTES (AUTO) 1.8 10^3/uL (0.5-4.7); ABSOLUTE MONOCYTES (AUTO) 0.7 10^3/uL (0.1-1.4); ABSOLUTE NEUT (AUTO) 5.5 10^3/uL (1.7-8.2); BASOPHILS % (AUTO) 0.4 % (0-2); HEMATOCRIT 44.8 % (36.0-47.0); HEMOGLOBIN 15.2 g/dL (12.0-15.5); LYMPHOCYTES % (AUTO) 22.7 % (13-45); MEAN CORPUSCULAR HEMOGLOBIN 30.8 pg (27.0-33.4); MEAN CORPUSCULAR VOLUME 91 fl (80-97); MONOCYTES % (AUTO) 8.3 % (3-13); PLATELET COUNT 222 10^3/uL (150-450); RED BLOOD COUNT 4.94 10^6/uL (3.72-5.28); RED CELL DISTRIBUTION WIDTH 13.3 % (11.5-14.0); SEGMENTED NEUTROPHILS % (AUTO) 67.6 % (42-78); TOTAL CELLS COUNTED % (AUTO) 100 %; WHITE BLOOD COUNT 8.1 10^3/uL (4.0-10.5)
[2019-03-28 13:20] LABS: ALBUMIN 4.4 g/dL (3.5-5.0); ALKALINE PHOSPHATASE 71 U/L (38-126); ANION GAP 8 (5-19); ASPARTATE AMINO TRANSFERASE 21 U/L (14-36); BILIRUBIN,DIRECT 0.2 mg/dL (0.0-0.4); BILIRUBIN,TOTAL 0.5 mg/dL (0.2-1.3); BLOOD UREA NITROGEN 14 mg/dL (7-20); CALCIUM 10.1 mg/dL (8.4-10.2); CARBON DIOXIDE 27 mmol/L (22-30); CHLORIDE 106 mmol/L (98-107); GLUCOSE 89 mg/dL (75-110); POTASSIUM 4.4 mmol/L (3.6-5.0); TOTAL PROTEIN 7.9 g/dL (6.3-8.2)
--- NOTE | 2019-03-28 17:33 | ER Document Report ---
ED General - General Chief Complaint: Vag Bleeding, +preg <12wks Stated Complaint: VAGINAL BLEEDING Time Seen by Provider: 03/28/19 12:14 Primary Care Provider: POLINA AMARO MD [Primary Care Provider] - Follow up as needed Mode of Arrival: Ambulatory Notes: Patient is an otherwise healthy G5, P2 presenting to the emergency department with chief complaint of vaginal bleeding in the setting of . Patient reports that she is approximately 11 weeks . She states this afternoon she started vaginal bleeding. She denies passage of any large clots. She reports associated low abdominal cramping. TRAVEL OUTSIDE OF THE [place] IN LAST 30 DAYS: No - Related Data Allergies/Adverse Reactions: No Known Allergies Allergy (Verified 03/28/19 12:13) Past Medical History - General Information source: Patient - Social History Smoking Status: Never Smoker Chew tobacco use (# tins/day): No Frequency of alcohol use: None Drug Abuse: None Family History: Reviewed & Not Pertinent Patient has suicidal ideation: No Patient has homicidal ideation: No - Medical History Medical History: Negative Renal/ Medical History: Denies: Hx Peritoneal Dialysis Past Surgical History: Reports: Hx Gynecologic Surgery - ovarian cyst - Immunizations Hx Diphtheria, Pertussis, Tetanus Vaccination: Yes Review of Systems - Review of Systems Constitutional: No symptoms reported EENT: No symptoms reported Cardiovascular: No symptoms reported Respiratory: No symptoms reported Gastrointestinal: Abdominal pain Genitourinary: No symptoms reported Female Genitourinary: Vaginal bleeding Musculoskeletal: No symptoms reported Skin: No symptoms reported Hematologic/Lymphatic: No symptoms reported Neurological/Psychological: No symptoms reported Physical Exam - Vital signs Vitals: Temp Pulse Resp BP Pulse Ox 97.9 F 71 18 122/68 98 03/28/19 11:59 03/28/19 11:59 03/28/19 11:59 03/28/19 11:59 03/28/19 11:59 - Notes Notes: PHYSICAL EXAMINATION: GENERAL: Well-appearing, well-nourished and in no acute distress. HEAD: Atraumatic, normocephalic. EYES: Pupils equal round and reactive to light, extraocular movements intact, conjunctiva are normal. ENT: Nares patent, oropharynx clear without exudates. Moist mucous membranes. NECK: Normal range of motion, supple without lymphadenopathy LUNGS: Breath sounds clear to auscultation bilaterally and equal. No wheezes rales or rhonchi. HEART: Regular rate and rhythm without murmurs ABDOMEN: Soft, nontender, nondistended abdomen. No guarding, no rebound. No masses appreciated. Female : Normal external genitalia, small amount of dark red blood from the cervix, cervix closed. No cervical motion tenderness or adnexal tenderness. Musculoskeletal: Normal range of motion, no pitting or edema. No cyanosis. NEUROLOGICAL: Cranial nerves grossly intact. Normal speech, normal gait. Normal sensory, motor exams PSYCH: Tearful. SKIN: Warm, Dry, normal turgor, no rashes or lesions noted. Course - Re-evaluation Re-evalutation: Laboratory 03/28/19 03/28/19 12:44 12:44 WBC 8.1 RBC 4.94 Hgb 15.2 Hct 44.8 MCV 91 MCH 30.8 MCHC 34.0 RDW 13.3 Plt Count 222 Lymph % (Auto) 22.7 [place] % (Auto) 8.3 Eos % (Auto) 1.0 Baso % (Auto) 0.4 Absolute Neuts (auto) 5.5 Absolute Lymphs (auto) 1.8 Absolute Monos (auto) 0.7 Absolute Eos (auto) 0.1 Absolute Basos (auto) 0.0 Seg Neutrophils % 67.6 Sodium 140.9 Potassium 4.4 Chloride 106 Carbon Dioxide 27 Anion Gap 8 BUN 14 Creatinine 0.63 Est GFR ( Amer) > 60 Est GFR (MDRD) Non-Af > 60 Glucose 89 Calcium 10.1 Total Bilirubin 0.5 Direct Bilirubin 0.2 Neonat Total Bilirubin Not Reportable Neonat Direct Bilirubin Not Reportable Neonat Indirect Bili Not Reportable AST 21 ALT 12 Alkaline Phosphatase 71 Total Protein 7.9 Albumin 4.4 Beta HCG, Quant 4652.60 H Total Beta HCG POSITIVE Obstetrics Ultrasound 03/28/19 12:19 IMPRESSION: Intrauterine gestational although no heart activity. The gestational sac is low in position. demise is suspected. Trimester of : First trimester - 0 to 13 weeks. Discussed patient with on-call INSULATION MANAGER, patient has options of medical management versus [id number] versus dilation and curettaged. Discussed risks and benefits with each option with the patient and patient would like to be discharged home with medications to help her complete the miscarriage. Patient given very strict ED return precautions. Patient verbalized understanding and agreement with same. Patient will follow-up with OB clinic Sunday as discussed. See discharge note. - Vital Signs Vital signs: Temp Pulse Resp BP Pulse Ox 98.1 F 60 16 112/70 97 03/28/19 17:37 03/28/19 17:37 03/28/19 17:37 03/28/19 17:37 03/28/19 17:37 - Laboratory Result Diagrams: 03/28/19 12:44 03/28/19 12:44 Laboratory results interpreted by me: 03/28/19 12:44 Beta HCG, Quant 4652.60 H Discharge - Discharge Clinical Impression: Vaginal bleeding during , demise Condition: Stable Disposition: HOME, SELF-CARE Additional Instructions: Miscarriage Impending You have been evaluated for a possible miscarriage. At this time, it appears that the fetus has stopped growing at approximately 8 weeks and there is no heartrate. A miscarriage occurs when the fetus is abnormal. There is no medicine or treatment to prevent it. If bleeding is not severe, and if your pain can be controlled with medicine, you could complete the miscarriage at home. If that's not practical, or if the miscarriage doesn't progress spontaneously, we will arrange for a D&C procedure. You should rest in bed. Do not douche or have sex for at least a week, or until OK'd by the doctor. If you believe you've passed the fetus, collect it in a zip-lock plastic bag. Be sure to follow up with your doctor. Call the doctor or return for re- examination if there is an increase in bleeding or cramping, extreme weakness, fainting, fever, or passage of tissue. Please call [facility] on Sunday to schedule an appointment for that day. Let them know you are seen in the emergency department and we spoke with Dr. Moreno who wants you to be seen that day. Please take medications as prescribed. If you decide to take the Cytotec please place 2 tablets into your vagina. This should start abdominal cramping in bleeding. If it does not please place another 2 tablets into the vagina 4 to 6 hours later. Please return to the emergency department if your bleeding through more than 2 pads per hour, you pass out, you develop a fever or any other symptoms that are concerning to you. We will be happy to reevaluate you here at any time. Prescriptions: Misoprostol [Cytotec 0.2 mg Tablet] 400 mcg PV ONCE PRN #4 tablet PRN Reason: Ibuprofen [Motrin 800 mg Tablet] 800 mg PO Q8H PRN #30 tab PRN Reason: Oxycodone HCl/Acetaminophen [Percocet 5-325 mg Tablet] 1 - 2 tab PO Q4H PRN #15 tablet PRN Reason: Forms: Return to Work Referrals: POLINA AMARO MD [Primary Care Provider] - Follow up as needed
[2019-03-28 17:40] VITALS: BP 112/70
[2019-03-28] MEDS ORDERED: ONDANSETRON ODT 4 MG TAB (6 TAB/ER DISP) PO PRN (17:49)
== END 2019-03-28 17:55 | disposition home or self-care (01) ==
LOC: ER 11:53
DX: O36.4XX0 Maternal care for intrauterine death, not applicable or unspecified (principal); O46.91 Antepartum hemorrhage, unspecified, first trimester; O26.891 Other specified pregnancy related conditions, first trimester; R10.30 Lower abdominal pain, unspecified; Z3A.11 11 weeks gestation of pregnancy
CPT/HCPCS: 36415; 76801; 80053; 84702; 85025; 99284

== ENCOUNTER → 2019-06-05 | Outpatient (CLI) | payer OTHER, MEDICAID | LOC: OD 08:30 | PROVIDERS: ATTEND Obstetrics & Gynecology Gynecology | DX: O20.0 Threatened abortion (principal) | CPT/HCPCS: 36415; 84702 ==